=== PATIENT | female | born 1985 | race Hispanic/Latino ===

== ENCOUNTER 2017-04-12 20:03 | Emergency (ER) | payer OTHER ==
[~2017-04-12] VITALS: Ht 152.4 cm; Wt 59.0 kg
[~2017-04-12 20:03] MED LIST: BENTYL20 MG PO; IMODIUM2 MG PO; MACROBID 100 M100 MG PO; PANTOPRAZOLE SO40 MG PO; PERCOCET 325 MG1 TA2 PO; PERCOCET 5-3251 EACH PO; PRILOSEC40 MG PO; VICODIN5-300 PO; ZOFRAN ODT4 MG PO; ZOFRAN ODT4 MG SL; ZOFRAN4 M1 PO
[2017-04-12 20:49] LABS: ABSOLUTE BASOPHIL COUNT 0 /CUMM (0.0-0.2); ABSOLUTE EOSINOPHIL COUNT 0 /CUMM (0.0-0.7); ABSOLUTE GRANULOCYTE CT 2.6 /CUMM (1.4-6.5); ABSOLUTE LYMPH COUNT 1.8 /CUMM (1.2-3.4); ABSOLUTE MONOCYTE COUNT 0.6 /CUMM (0.10-0.60); BASOPHIL % 0.6 % (0.0-2.0); EOSINOPHIL % 0.2 % (0-5); HEMATOCRIT 44.6 % (37-47); MEAN CORPUSCULAR HGB 29.3 PG (27.0-31.0); MEAN CORPUSCULAR HGB CONC 33.3 G/DL (33.0-37.0); MEAN CORPUSCULAR VOLUME 87.9 FL (81.0-99.0); MEAN PLATELET VOLUME 9.1 FL (7.4-10.4); PLATELET COUNT 213 /CUMM (130-400); RBC DISTRIBUTION WIDTH 14.7 % (11.5-14.5); RED BLOOD CELL CT 5.07 /CUMM (4.20-5.40); WHITE BLOOD CELL COUNT 5.1 /CUMM (4.8-10.8)
--- NOTE | 2017-04-12 21:47 | ED GENERAL ADULT ---
History of Present Illness General Chief Complaint: General Adult Stated Complaint: LUQ/UNDER BREAST PAIN, SWOLLEN, SORE TO TOUCH Source: patient Exam Limitations: no limitations Vital Signs & Intake/Output Vital Signs & Intake/Output Vital Signs Date Time Temp Pulse Resp B/P B/P Pulse O2 O2 Flow FiO2 Mean Ox Delivery Rate 04/12 2322 98.7 69 22 115/77 98 Room Air 04/12 2012 98.7 82 18 128/78 99 Room Air ED Intake and Output 04/13 0000 04/12 1200 Intake Total Output Total Balance Patient 130 lb Weight Weight Reported by Patient Measurement Method Allergies Coded Allergies: NO KNOWN ALLERGIES (07/20/16) Reconcile Medications Amoxicillin/Potassium Clav (Augmentin 875-125 Tablet) 875 MG-125 MG TABLET 1 TAB PO BID bronchitis/sinusitis Benzonatate (Tessalon Perle) 100 MG CAPSULE 1 CAP PO TID PRN cough Ibuprofen 800 MG TABLET 1 TAB PO TID PRN pain Nitrofurantoin Monohyd/M-Cryst (Macrobid 100 MG Capsule) 100 MG CAPSULE 1 CAP PO BID uti with food Oxycodone HCl/Acetaminophen (Percocet 5-325 MG Tablet) 1 EACH TABLET 1-2 TAB PO Q6P PRN pain Oxycodone HCl/Acetaminophen (Percocet 5-325 MG Tablet) 1 EACH TABLET 1 TAB PO Q6H PRN PAIN Tramadol HCl 50 MG TABLET 1-2 TAB PO TID PRN pain thirty...[id number] Triage Note: PT TO TRIAGE WITH C/O SORE THROAT, COUGH, CHILLS, CONGESTION, R EAR PAIN x2DAYS, NOW PT FEEL LUQ ABDOMINAL THROBBING PAIN 8/10 AND NAUSEA SINCE THIS MORNING. PT DENIES V/D,URINARY S/S. ALSO C/O CHEST TIGHTNESS, AND INCREASING OF ABD PAIN WITH COUGHING. VSS. PT AFEBRILE. Triage Nurses Notes Reviewed? yes Onset: Gradual Duration: day(s): Timing: recent history Injury Environment: home Severity: mild, moderate Modifying Factors: Improves With: rest. Worsens With: other (worse w/palpation). Associated Symptoms: rib cage tenderness to palpation : No Patient currently breastfeeds: No HPI: 31 yo woman with 2-3 days of cough, runny nose, right ear pain, sinus congestion, and then also with left lower rib cage pain, worse with coughing and palpation. No fever, chills, wheezing. She notes mild-moderate amount of thick phlegm, and smokes cigarettes occasionally. She has tried ibuprofen 800mg without effect. She is otherwise well. Past History Travel History Traveled to [place] past 21 day No Medical History Any Pertinent Medical History? see below for history Neurological: migraine EENT: NONE Cardiovascular: NONE Respiratory: NONE Gastrointestinal: gastritis Hepatic: CHRONIC ABNORMAL LFT'S Renal: NONE Musculoskeletal: NONE Psychiatric: NONE Endocrine: NONE Blood Disorders: SICKLE CELL TRAIT Cancer(s): NONE RECHARGER/Reproductive: NONE Surgical History Surgical History: cholecystectomy, COLONOSCOPY AND ENDOSCOPY Psychosocial History What is your primary language Spanish Tobacco Use: Current Daily Use Daily Tobacco Use Amount/Type: =< 4 Cigarettes daily Family History Hx Contributory? No Review of Systems Review of Systems Constitutional: Reports: no symptoms. EENTM: Reports: no symptoms. Respiratory: Reports: no symptoms. Cardiovascular: Reports: no symptoms. GI: Reports: no symptoms. Genitourinary: Reports: no symptoms. Musculoskeletal: Reports: no symptoms. Skin: Reports: no symptoms. Neurological/Psychological: Reports: no symptoms. Hematologic/Endocrine: Reports: no symptoms. Immunologic/Allergic: Reports: no symptoms. All Other Systems: Reviewed and Negative Physical Exam Physical Exam General Appearance: well developed/nourished, mild distress Head: atraumatic, normal appearance Eyes: Bilateral: normal appearance. Ears, Nose, Throat: normal pharynx, normal ENT inspection Neck: normal inspection, supple, full range of motion Respiratory: normal breath sounds, no respiratory distress, left lower rib cloth printing back tender to palpation. Cardiovascular: regular rate/rhythm Gastrointestinal: normal bowel sounds, soft, non-tender, no organomegaly Back: normal inspection, normal range of motion Extremities: normal inspection, normal capillary refill, normal range of motion, no edema, calf tenderness Neurologic/Psych: no motor/sensory deficits, awake, alert, oriented x 3 Skin: intact, normal color, warm/dry Core Measures ACS in differential dx? No CVA/TIA Diagnosis: No Severe Sepsis Present: No Septic Shock Present: No Progress Differential Diagnoses I considered the following diagnoses in my evaluation of the patient: bronchitis vs sinusitis vs costochondritis Plan of Care: Orders Procedure Date/time Status Add-on Test (ER Only) 04/12 2148 Active HUMAN BETA HCG SCREEN 04/12 2032 Complete LIPASE 04/12 2009 Complete COMPREHENSIVE METABOLIC PANEL 04/12 2009 Complete CBC WITHOUT DIFFERENTIAL 04/12 2009 Complete AMYLASE 04/12 2009 Complete Laboratory Tests 04/12/172031: Anion Gap 11, Estimated GFR > 60, BUN/Creatinine Ratio 15.7, Glucose 88, Calcium 9.4, Total Bilirubin 0.6, AST 34, ALT 44, Alkaline Phosphatase 66, Total Protein 7.6, Albumin 4.3, Globulin 3.3, Albumin/Globulin Ratio 1.3, Amylase 141 H, Lipase 65, Total Beta HCG NEGATIVE, CBC w Diff NO MAN DIFF REQ, RBC 5.07, MCV 87.9, MCH 29.3, RDW 14.7 H, MPV 9.1, Gran % 51.0, Lymphocytes % 36.5, Monocytes % 11.7 H, Eosinophils % 0.2, Basophils % 0.6, Absolute Granulocytes 2.6, Absolute Lymphocytes 1.8, Absolute Monocytes 0.6, Absolute Eosinophils 0, Absolute Basophils 0, PUBS MCHC 33.3 Diagnostic Imaging: Viewed by Me: Radiology Read. Discussed w/RAD: Radiology Read. CXR Impression: no acute disease Initial ED EKG: none Comments: PATIENT: SANCHO SPARKS PRESENT AGE: 31 PATIENT ACCOUNT NO: [id number] : 86 LOCATION: [facility] ORDERING PHYSICIAN: RADHA NELSON MD SERVICE DATE: 04/12/17 EXAM TYPE: RAD - XRY-PORTABLE CHEST XRAY EXAMINATION: XR PORTABLE CHEST CLINICAL INFORMATION: Left-sided rib cage pain. COMPARISON: Chest radiography 08/11/2013. TECHNIQUE: Portable frontal view of the chest was obtained. FINDINGS: The lungs are well expanded. No pneumothorax, parenchymal consolidation, pleural effusion, pulmonary edema. No mediastinal widening. No acute osseous abnormality demonstrated. IMPRESSION: No acute thoracic pathology demonstrated. No significant interval change compared to prior exam 07/2013. 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 <Electronically signed in Other Vendor System> SIGNED BY: CRAIG HUDSON MD 04/12/172233 Departure Departure Disposition: HOME OR SELF CARE Condition: Stable Clinical Impression Primary Impression: Bronchitis Secondary Impressions: Costochondritis Referrals: PATSY LAINEZ,ECHO (PCP/Family) Departure Forms: Customer Survey General Discharge Information Prescriptions: Current Visit Scripts Ibuprofen 1 TAB PO TID PRN pain #30 TAB Amoxicillin/Potassium Clav (Augmentin 875-125 Tablet) 1 TAB PO BID #20 TAB Tramadol HCl 1-2 TAB PO TID PRN pain #30 TAB thirty...[id number] Benzonatate (Tessalon Perle) 1 CAP PO TID PRN cough #30 CAP Comments pt with tenderness to left lower rib cage with benign labs/cxr.... pt safe for discharge with symptomatic support. will also treat for bronchitis with antitussives and antibiotics. Critical Care Note Critical Care Note Critical Care Time: non-applicable
--- NOTE | 2017-04-12 22:34 | RADIOLOGY REPORT ---
EXAMINATION: XR PORTABLE CHEST CLINICAL INFORMATION: Left-sided rib cage pain. COMPARISON: Chest radiography 08/11/2013. TECHNIQUE: Portable frontal view of the chest was obtained. FINDINGS: The lungs are well expanded. No pneumothorax, parenchymal consolidation, pleural effusion, pulmonary edema. No mediastinal widening. No acute osseous abnormality demonstrated. IMPRESSION: No acute thoracic pathology demonstrated. No significant interval change compared to prior exam 07/2013.
[2017-04-12] MEDS ORDERED: IBUPROFEN800 M1 PO (23:07)
[2017-04-12] MEDS ORDERED: AUGMENTIN 875-1 EACH PO (23:07)
[2017-04-12] MEDS ORDERED: TRAMADOL HCL50 M1 PO (23:16)
[2017-04-12] MEDS ORDERED: TESSALON PERLE100 M1 PO (23:17)
[2017-04-12 23:22] VITALS: BP 115/77
== END 2017-04-12 23:23 ==
LOC: ERH 20:03
PROVIDERS: Physician Assistant Medical
DX: J40 Bronchitis, not specified as acute or chronic (principal); M94.0 Chondrocostal junction syndrome [Tietze]; Z72.0 Tobacco use
CPT/HCPCS: 96372; J1885

== ENCOUNTER 2017-12-25 10:35 | Emergency (ER) | payer OTHER ==
[~2017-12-25] VITALS: Ht 152.4 cm; Wt 63.5 kg
[~2017-12-25 10:35] MED LIST changes: +AUGMENTIN 875-1 EACH PO; +IBUPROFEN800 M1 PO; +TESSALON PERLE100 M1 PO; +TRAMADOL HCL50 M1 PO
--- NOTE | 2017-12-25 12:08 | ED CARDIAC/CP/PALPITATIONS ---
History of Present Illness General Chief Complaint: Chest Pain Stated Complaint: TIGHTNESS IN CP WITH CP Source: patient Exam Limitations: no limitations Vital Signs & Intake/Output Vital Signs & Intake/Output Vital Signs Date Time Temp Pulse Resp B/P B/P Pulse O2 O2 Flow FiO2 Mean Ox Delivery Rate 12/25 1529 98.4 88 16 98/56 99 Room Air 12/25 1330 98.6 79 16 112/66 100 Room Air ED Intake and Output 12/26 0000 12/25 1200 Intake Total Output Total Balance Patient 140 lb Weight Weight Reported by Patient Measurement Method Allergies Coded Allergies: NO KNOWN ALLERGIES (07/20/16) Reconcile Medications Amoxicillin/Potassium Clav (Augmentin 875-125 Tablet) 875 MG-125 MG TABLET 1 TAB PO BID bronchitis/sinusitis Benzonatate (Tessalon Perle) 100 MG CAPSULE 1 CAP PO TID PRN cough Diazepam (Valium) 5 MG TABLET 1 TAB PO BIDP PRN muscle spasm Ibuprofen 800 MG TABLET 1 TAB PO TID PRN pain Naproxen (Naprosyn) 500 MG TABLET 1 TAB PO BID PRN pain Nitrofurantoin Monohyd/M-Cryst (Macrobid 100 MG Capsule) 100 MG CAPSULE 1 CAP PO BID uti with food Oxycodone HCl/Acetaminophen (Percocet 5-325 MG Tablet) 1 EACH TABLET 1-2 TAB PO Q6P PRN pain Oxycodone HCl/Acetaminophen (Percocet 5-325 MG Tablet) 1 EACH TABLET 1 TAB PO Q6H PRN PAIN Tramadol HCl 50 MG TABLET 1-2 TAB PO TID PRN pain thirty...[id number] Triage Note: PT TO ED FOR R SIDED RIB PAIN RADIATING INTO HER BACK, REPRODUCIBLE, TENDER TO PALPATION. REPORTING PAIN BEGAN AFTER THE GYM ON THURSDAY NIGHT. Triage Nurses Notes Reviewed? yes Onset: Abrupt Duration: day(s): (5), constant, continues in ED, getting worse Timing: single episode today Quality/Severity: severe, sharp Location: RT RIBS, RUQ Radiation: back Activities at Onset: none Prior Chest Pain/Card Workup: no prior chest pain, no prior cardiac workup Modifying Factors: Improves With: rest. Worsens With: movement, palpation. Nitro Today/Relief: no nitro taken today Aspirin Today: no aspirin today Associated Symptoms: abdominal pain, back pain LMP (ages 10-50): unknown : No Patient currently breastfeeds: No HPI: 32-year-old female past medical history of gastritis, gallstones status post cholecystectomy. Migraines presents for evaluation of right rib/back/abdominal pain. Patient states symptoms started about 5 days ago after heavy workout at the gym. The pain is mostly located in the right ribs and radiates to the right upper quadrant and right back. The pain is worse with movement or palpation of the area. She describes the pain as sharp and rates it as a 10 out of 10. She' s been taking ibuprofen without any improvement. No nausea vomiting. She does report some associated watery diarrhea. No melena or bright red blood per rectum. Pain is also worse with deep inspiration. No hemoptysis or lower extremity edema. No chest pain no shortness of breath. She does not drink smoke or use any drugs. No control, NO Recent surgery recent trauma. Past History Travel History Traveled to [place] past 21 day No Medical History Any Pertinent Medical History? 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 No Review of Systems Review of Systems Constitutional: Reports: no symptoms. EENTM: Reports: no symptoms. Respiratory: Reports: no symptoms. Cardiovascular: Reports: no symptoms. GI: Reports: see HPI, abdominal pain, diarrhea. Genitourinary: Reports: no symptoms. Musculoskeletal: Reports: see HPI, back pain, muscle pain. Skin: Reports: no symptoms. Neurological/Psychological: Reports: no symptoms. Hematologic/Endocrine: Reports: no symptoms. Immunologic/Allergic: Reports: no symptoms. All Other Systems: Reviewed and Negative Physical Exam Physical Exam General Appearance: well developed/nourished, no apparent distress, alert, awake Head: atraumatic, normal appearance Eyes: Bilateral: normal appearance, PERRL, EOMI. Ears, Nose, Throat: hearing grossly normal Neck: normal inspection, supple, full range of motion Respiratory: normal breath sounds, no respiratory distress, lungs clear, CHEST WALL IS TENDER TO PALPATION OVER THE RT CHEST AND STERNUM Cardiovascular: regular rate/rhythm, normal peripheral pulses Peripheral Pulses: 2+ radial (R), 2+ radial (L) Gastrointestinal: normal bowel sounds, soft, no organomegaly, tenderness (RT FLANK RUQ) Back: normal inspection, normal range of motion, no vertebral tenderness, PAIN TO PALPATION OF THE RIGHT-SIDED LUMBAR PARASPINOUS MUSCLES. nO MIDLINE PAIN. nO STEP-OFFS OR DEFORMITIES NO cva TENDERNESS, PAIN WITH RANGE OF MOTION OF THE BACK AND TRUNK Extremities: normal inspection, normal range of motion, no edema, PAIN WITH RANGE OF MOTION OF THE RIGHT UPPER EXTREMITY Neurologic/Psych: no motor/sensory deficits, awake, alert, oriented x 3 Skin: intact, normal color, warm/dry Lymphatic: no anterior cervical yaneth Core Measures ACS in differential dx? No CVA/TIA Diagnosis No Sepsis Present: No Sepsis Focused Exam Completed? No Progress Differential Diagnosis: aortic dissection, cholecystitis, pancreatitis, pneumonia, pneumothorax, pulmonary embolism, PUD/GERD, PVCs/PACs, CHOLANGITIS, KIDNEY STONE, PYELO, MUSCLE STRAIN, FRACTURE Plan of Care: Orders Procedure Date/time Status URINE 12/25 1240 Complete URINALYSIS 12/25 1240 Complete TROPONIN LEVEL 12/25 1240 Complete LIPASE 12/25 1240 Complete C-REACTIVE PROTEIN 12/25 1240 Complete COMPREHENSIVE METABOLIC PANEL 12/25 1240 Complete CBC WITHOUT DIFFERENTIAL 12/25 1240 Complete EKG 12/25 1036 Active Laboratory Tests 12/25/17 1302: Urine Color YEL, Urine Clarity CLEAR, Urine pH 6.0, Ur Specific Barrett 1.015, Urine Protein NEG, Urine Ketones NEG, Urine Nitrite NEG, Urine Bilirubin NEG, Urine Urobilinogen 0.2, Ur Leukocyte Esterase NEG, Ur Microscopic EXAM NOT REQUIRED, Urine Hemoglobin NEG, Urine Glucose NEG, Urine Test NEGATIVE 12/25/17 1255: Anion Gap 15, Estimated GFR > 60, BUN/Creatinine Ratio 14.3, Glucose 82, Calcium 10.0, Total Bilirubin 1.2, AST 30, ALT 32, Alkaline Phosphatase 50, Troponin I < 0.01, C-Reactive Prot, Quant 3.6 H, Total Protein 8.2, Albumin 4.7, Globulin 3.5, Albumin/Globulin Ratio 1.3, Lipase 34, CBC w Diff NO MAN DIFF REQ, RBC 4.77 , MCV 87.4, MCH 29.9, MCHC 34.2, RDW 12.9, MPV 8.6, Gran % 75.3 H, Lymphocytes % 18.4 L, Monocytes % 5.2, Eosinophils % 0.6, Basophils % 0.5, Absolute Granulocytes 9.5 H, Absolute Lymphocytes 2.3, Absolute Monocytes 0.7 H, Absolute Eosinophils 0.1, Absolute Basophils 0.1 Patient seen and evaluated. She is having pain in her right flank right ribs right upper quadrant and right lower back. This pain started after she went to the gym. Is very reproducible. Patient also has tenderness in the right upper quadrant with a history of cholecystitis and is status post cholecystectomy. Patient is rating his pain is attended 10 she appears uncomfortable and states this is the worst pain of her life. We'll check basic blood work and a CT scan rule out cholangitis, atypical apPY, and evaluate for kidney stones. Blood work shows mildly elevated white blood cell count but otherwise within normal limits. Patient is afebrile no evidence of infection in the urine. Lungs are clear no coughing. CT scan does not show any acute findings. Review results with patient. She is feeling better after Toradol and Valium. Advised her to rest avoid excessive physical activity or lifting or bending. Tylenol or ibuprofen as needed for pain. Valium or muscle spasm. Follow-up with primary care doctor. Discussed return precautions in detail patient is nontoxic- appearing and agrees to plan. Diagnostic Imaging: Viewed by Me: CT Scan. Discussed w/RAD: CT Scan. Radiology Impression: PATIENT: SANCHO SPARKS PRESENT AGE: 32 PATIENT ACCOUNT NO: [id number] : 86 LOCATION: [facility] ORDERING PHYSICIAN: Masood CORDERO SERVICE DATE: 12/25/17 EXAM TYPE: CAT - CT ABD & PELVIS W IV CONTRAST EXAMINATION: CT ABDOMEN AND PELVIS WITH CONTRAST CLINICAL INFORMATION: Right upper quadrant and right lower quadrant abdominal pain radiating into the right flank. COMPARISON: 07/20/2016. TECHNIQUE: Multidetector volumetric imaging was performed of the abdomen and pelvis following IV administration of 95 mL of Optiray 320 intravenous contrast. Sagittal and coronal reformatted images were obtained on the technologist's workstation. DLP: 273.44 mGy-cm. FINDINGS: LUNG BASES: Hypoventilatory changes are noted at both lung bases, new since prior study. LIVER, GALLBLADDER, AND BILIARY TREE: The liver is normal in size, shape, and attenuation. No focal hepatic lesion or biliary ductal dilatation is present. The gallbladder is not visualized, either surgically absent or contracted, unchanged since 07/20/2016. PANCREAS: Unremarkable. SPLEEN: Unremarkable. ADRENAL GLANDS: Unremarkable. KIDNEYS AND URETERS: The kidneys are normal in size, shape, and attenuation. No hydronephrosis, hydroureter, or calculi seen. No perinephric stranding. BLADDER: Suboptimally distended, grossly appears unremarkable. GASTROINTESTINAL TRACT: The small and large bowel are unremarkable. The appendix is unremarkable. ABDOMINAL WALL: No significant hernia is appreciated. LYMPH NODES: Normal. VASCULAR: Unremarkable. PELVIC VISCERA: There is no adnexal mass present. The uterus is unremarkable. There is no free fluid and/or free air present. OSSEOUS STRUCTURES: Unremarkable. IMPRESSION: No acute intra-abdominal and/or intrapelvic pathology is present, unchanged since 07/20/2016. 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 Initial ED EKG: normal sinus rhythm Prior EKG: unchanged (IMPROVED INMFERIOR T WAVES ) Departure Departure Disposition: HOME OR SELF CARE Condition: Stable Clinical Impression Primary Impression: Right flank pain Referrals: Catherine Jernigan MD (PCP/Family) Additional Instructions: Rest, avoid heavy lifting bending or excessive physical activity. Apply heating pad for 15-20 minutes every few hours. Naproxen can be used every 12 hours with food as needed for pain. Valium can be used as directed for severe pain only this may cause drowsiness. Do not drive while taking. Make a follow-up with her primary care doctor for this week. Monitor symptoms and return with any concerns. Departure Forms: Customer Survey General Discharge Information Prescriptions: Current Visit Scripts Naproxen (Naprosyn) 1 TAB PO BID PRN pain #30 TAB Diazepam (Valium) 1 TAB PO BIDP PRN muscle spasm #10 TAB Critical Care Note Critical Care Note Critical Care Time: non-applicable
[2017-12-25 13:11] LABS: ABSOLUTE BASOPHIL COUNT 0.1 /CUMM (0.0-0.2); ABSOLUTE EOSINOPHIL COUNT 0.1 /CUMM (0.0-0.7); ABSOLUTE GRANULOCYTE CT 9.5 /CUMM (1.4-6.5); ABSOLUTE LYMPH COUNT 2.3 /CUMM (1.2-3.4); ABSOLUTE MONOCYTE COUNT 0.7 /CUMM (0.10-0.60); BASOPHIL % 0.5 % (0.0-2.0); EOSINOPHIL % 0.6 % (0-5); GRANULOCYTE % 75.3 % (42.2-75.2); HEMATOCRIT 41.7 % (37-47); MEAN CORPUSCULAR HGB 29.9 PG (27.0-31.0); MEAN CORPUSCULAR HGB CONC 34.2 G/DL (33.0-37.0); MEAN CORPUSCULAR VOLUME 87.4 FL (81.0-99.0); MEAN PLATELET VOLUME 8.6 FL (7.4-10.4); PLATELET COUNT 281 /CUMM (130-400); RBC DISTRIBUTION WIDTH 12.9 % (11.5-14.5); RED BLOOD CELL CT 4.77 /CUMM (4.20-5.40); WHITE BLOOD CELL COUNT 12.7 /CUMM (4.8-10.8)
--- NOTE | 2017-12-25 15:04 | CT SCAN REPORT ---
EXAMINATION: CT ABDOMEN AND PELVIS WITH CONTRAST CLINICAL INFORMATION: Right upper quadrant and right lower quadrant abdominal pain radiating into the right flank. COMPARISON: 07/20/2016. TECHNIQUE: Multidetector volumetric imaging was performed of the abdomen and pelvis following IV administration of 95 mL of Optiray 320 intravenous contrast. Sagittal and coronal reformatted images were obtained on the technologist's workstation. DLP: 273.44 mGy-cm. FINDINGS: LUNG BASES: Hypoventilatory changes are noted at both lung bases, new since prior study. LIVER, GALLBLADDER, AND BILIARY TREE: The liver is normal in size, shape, and attenuation. No focal hepatic lesion or biliary ductal dilatation is present. The gallbladder is not visualized, either surgically absent or contracted, unchanged since 07/20/2016. PANCREAS: Unremarkable. SPLEEN: Unremarkable. ADRENAL GLANDS: Unremarkable. KIDNEYS AND URETERS: The kidneys are normal in size, shape, and attenuation. No hydronephrosis, hydroureter, or calculi seen. No perinephric stranding. BLADDER: Suboptimally distended, grossly appears unremarkable. GASTROINTESTINAL TRACT: The small and large bowel are unremarkable. The appendix is unremarkable. ABDOMINAL WALL: No significant hernia is appreciated. LYMPH NODES: Normal. VASCULAR: Unremarkable. PELVIC VISCERA: There is no adnexal mass present. The uterus is unremarkable. There is no free fluid and/or free air present. OSSEOUS STRUCTURES: Unremarkable. IMPRESSION: No acute intra-abdominal and/or intrapelvic pathology is present, unchanged since 07/20/2016.
[2017-12-25] MEDS ORDERED: NAPROSYN500 M1 PO (15:23)
[2017-12-25] MEDS ORDERED: VALIUM5 M2 PO (15:23)
[2017-12-25 15:29] VITALS: BP 98/56
== END 2017-12-25 15:37 ==
LOC: ERH 10:35
PROVIDERS: Physician Assistant Medical
DX: R10.9 Unspecified abdominal pain (principal)
CPT/HCPCS: 74177; 81003; 81025; 93005; 93010; 96374; J1885; J3360